=== PATIENT | male | born 1965 | race Caucasian/White ===

== ENCOUNTER 2024-10-20 09:00 | Day surgery (SDC) | payer OTHER, SELFPAY ==
--- NOTE | 2024-10-19 07:00 | EKG_ITS ---
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
[2024-10-19 08:28] VITALS: BMI 17.5
[2024-10-19 10:15] LABS: Alanine Aminotransferase 11 U/L (10-49); Albumin, Serum 4.6 gm/dL (3.5-5.0); Albumin/Globulin Ratio 1.8 (1.2-2.2); Alkaline Phosphatase 78 U/L (46-116); Anion Gap 6 (7-16); Aspartate Amino Transferase 15 U/L (0-34); BUN/Creatinine Ratio 41 Ratio (12-20); Bilirubin,Total < 0.2 mg/dL (0.3-1.2); Blood Urea Nitrogen 33 mg/dL (9-23); Carbon Dioxide 30.3 mMol/L (20.0-31.0); Chloride 107 mMol/L (98-107); Creatinine (Component) 0.8 mg/dL (0.6-1.3); Estimated Creatinine Clearance 69.3 mL/min (>60); Globulin 2.5 gm/dL (2.3-3.5); Glucose 85 mg/dL (74-106); Osmolality,Calculated 291 (275-295); Potassium 3.7 mMol/L (3.4-5.1); Sodium 143 mMol/L (136-145); Total Protein 7.1 gm/dL (5.7-8.2); eGFR > 60 See Note
[2024-10-20] VITALS (8 sets, daily range): BP systolic 95–107; BP diastolic 57–68; PULSE 63–76; RESP 12–20; TEMP 36.3–36.9; O2SAT 95–100; BMI 17.1
[2024-10-20] MEDS: RINGERS LACTATED 1000 ML 1,000 ML 20 ML IV (09:52)
--- NOTE | 2024-10-20 12:30 | SUR.PHASEII ---
pt received from OR in recovery bay 5. pt asleep but responds to voice, breathing unlabored on room air. v/s stable. pt dressing to left ear cdi. report received from Edd CORTEZ and Dr. Mauricio.
--- NOTE | 2024-10-20 12:36 | PD.SUROPNT ---
Date of Procedure 10/20/24 Pre Op Diagnosis Sensorineural hearing loss left ear Post Op Diagnosis Sensorineural hearing loss left ear Procedure Insertion of Sentio implant left side Findings Normal postauricular anatomy Procedure Description 59-year-old male with profound hearing loss in the left ear with near normal hearing on the right side. Treatment options were discussed and he wished to proceed with the implant as described above. Risk of bleeding infection and implant extrusion were discussed with him. Anticipated outcomes were discussed as well. The patient was marked and shaved the preoperative setting and transferred to the operative suite where he was sedated and then sterilely prepped and draped. Timeout was performed. Markings been made for the incision site for the implant. The area was injected with 1% lidocaine with 1 100,000 Rigo epinephrine. Approximately 2 cc total used. A curved incision was then made postauricularly and anterior and posterior flap developed followed by elevation of the periosteal flap anteriorly and posteriorly. The pocket was extended posteriorly until the template was able to be fully inserted. The mastoid cortex was marked for drilling and then 1 to 2 mm well it was drilled for the transducer. Channel was drilled for it as well. The implant was then brought into the field and carefully inserted. It was fixed in place with a 45 mm strap and self-tapping screws. Implant was secured. Postauricular incision was then closed in a multilayer fashion with 4-0 Vicryl and then Dermabond on the skin. Patient was awakened and taken to the recovery room in stable condition Anesthesia IV sedation Implants Sentio implant Pathology / specimen None Estimated Blood Loss 5 Surgeon Maikel Vu DO Surgical Staff Operation Date: 10/20/24 11:15 Case Staff Anesthesiologist: Phil Mauricio
--- NOTE | 2024-10-20 13:00 | SUR.PHASEII ---
pt able to tolerate oral fluids without difficulty swallowing or nausea/vomiting.
--- NOTE | 2024-10-20 13:58 | SUR.PHASEII ---
pt awake and alert, breathing unlabored on room air. pt dressing to left ear cdi. pt able to ambulate to wheelchair with steady gait. d/c instructions given with Dr. Vu in room, all questions answered. Pt did not have ride home so [employer] was called and pt was transferred using [employer]. pt did not have adult to stay with, pt is staying at [facility] in [place]. Dr. Vu aware and ok discharging pt home. Charge nurse Cecy and Charlotte Director aware as well.
== END 2024-10-20 13:58 | disposition home or self-care (01) ==
PROVIDERS: PCP Internal Medicine; Referring Provider Otolaryngology; Visit Provider Otolaryngology
PROC: (CPT 69710; principal; 2024-10-20 11:00)
DX: H91.92 Unspecified hearing loss, left ear (principal); Z01.810 Encounter for preprocedural cardiovascular examination
CPT/HCPCS: 69716; 36415; 80053; 93005; A4217; A4649; J0690; J1200; J2250; J2371; J3010; J3490; J7120; L8614